=== PATIENT | male | born 1975 | race Caucasian/White ===

== ENCOUNTER 2021-04-26 13:20 | Outpatient (RCR) | payer BC, SELFPAY | END 2021-05-20 23:59 | disposition home or self-care (01) | LOC: WOUND 13:20 | PROVIDERS: Visit Provider Thoracic Surgery (Cardiothoracic Vascular Surgery) | DX: Z09 Encounter for follow-up examination after completed treatment for conditions other than malignant neoplasm (principal); Z87.891 Personal history of nicotine dependence | CPT/HCPCS: 99202; 99203 ==